=== PATIENT | female | born 1970 | race Caucasian/White ===

== ENCOUNTER → 2016-07-29 | Outpatient (CLI) | payer BC ==
--- NOTE | 2016-07-30 08:46 | MM ---
Reason for exam: screening (asymptomatic). Last mammogram was performed 6 months ago. History: Patient has history of other cancer at age 14. Chemotherapy, 1984. Radiation therapy, 1984. Took hormonal contraceptives for 10 years beginning at age 32. Physical Findings: A clinical breast exam by your physician is recommended on an annual basis and results should be correlated with mammographic findings. MG Screening Mammo w CAD Bilateral CC and MLO view(s) were taken. Prior study comparison: January 22, 2016, left breast MG work up mamm w CAD LT. January 12, 2016, bilateral MG screening mammo w CAD. Finding #1: There is a 7 mm equal density (isodense), oval mass in the central position of the right breast. Finding #2: There are typically benign calcifications in the left breast. ASSESSMENT: Incomplete: need additional imaging evaluation, BI-RAD 0 RECOMMENDATION: Special view mammogram of the right breast. If lesion persists on supplemental views, image directed ultrasound is recommended. [facility] will attempt to contact patient to return for supplemental views and ultrasound if indicated.
== END | disposition home or self-care (01) ==
LOC: RADMAMWWP 11:20
PROVIDERS: ATTEND Obstetrics & Gynecology
DX: Z12.31 Encounter for screening mammogram for malignant neoplasm of breast (principal)

== ENCOUNTER → 2016-08-07 | Outpatient (CLI) | payer BC ==
--- NOTE | 2016-08-08 06:47 | MM ---
Reason for exam: additional evaluation requested from abnormal screening. Last mammogram was performed less than 1 month ago. History: Patient has history of other cancer at age 14. Chemotherapy, 1984. Radiation therapy, 1984. Took hormonal contraceptives for 10 years beginning at age 32. Physical Findings: Nurse did not find any significant physical abnormalities on exam. MG Work Up Mamm w CAD RT LM and CC view(s) were taken of the right breast. Prior study comparison: July 29, 2016, bilateral MG screening mammo w CAD. January 22, 2016, left breast MG work up mamm w CAD LT. The breast tissue is heterogeneously dense. This may lower the sensitivity of mammography. Focal asymmetry in the right breast middle depth persists on spot CC view, not well seen on lateral view. These results were verbally communicated with the patient and result sheet given to the patient on 08/07/16. ASSESSMENT: Incomplete: need additional imaging evaluation, BI-RAD 0 RECOMMENDATION: Ultrasound of the right breast.
--- NOTE | 2016-08-08 06:51 | USB ---
Reason for exam: additional evaluation requested from abnormal screening. History: Patient has history of other cancer at age 14. Chemotherapy, 1984. Radiation therapy, 1984. Took hormonal contraceptives for 10 years beginning at age 32. US Breast Workup RT Right breast ultrasound including all four quadrants, the retroareolar region and axilla demonstrates a 4 x 3 x 4mm oval, mixed, hypoechoic, vascular lesion at 12 o'clock for which a FNA +/- biopsy is advised and a 9 x 4 x 5mm oval, cystic lesion at 12 o'clock, 6 cm from nipple. These results were verbally communicated with the patient and result sheet given to the patient on 08/07/16. ASSESSMENT: Suspicious, BI-RAD 4 RECOMMENDATION: Ultrasound core biopsy of the right breast. (+/- FNA) Called Dr. West with mammographic findings and has scheduled an appointment for the patient for 08/20/16 at 4:[address] Park. PRELIMINARY REPORT CALLED AND FAXED TO DR. PARK ON 08/08/16 AT 700/TP.
== END | disposition home or self-care (01) ==
LOC: RADMAMWWP 10:29
PROVIDERS: ATTEND Obstetrics & Gynecology
DX: R92.8 Other abnormal and inconclusive findings on diagnostic imaging of breast (principal)
CPT/HCPCS: 76641; G0206

== ENCOUNTER → 2016-09-05 | Day surgery (SDC) | payer BC ==
[~2016-09-05] MED LIST: BACITRACIN OINT 1 EACH PACKET TOPICAL ONE; LIDOCAINE 1% INJ 10MG/ML (20 ML MDV) ONE; LIDOCAINE 1%-EPI 1:100,000 20 ML VIAL ONE; SODIUM BICARB 4% 5 ML VIAL (0.48 MEQ/ML) ONE
--- NOTE | 2016-09-05 13:20 | USB ---
EXAMINATION TYPE: US biopsy breast VAD RT, MG diagnostic mammo RT wo CAD DATE OF EXAM: 09/05/2016 1:06 PM CLINICAL HISTORY: Abn Mammo R92.8. Abnormal ultrasound TECHNIQUE: Ultrasound guided core biopsy of right breast with clip placement and follow-up two-view mammogram. COMPARISON: Right breast diagnostic mammogram and ultrasound August 07, 2016 and older studies. FINDINGS: The procedure of ultrasound guided core biopsy was explained to the patient. Benefits, alternatives, and risks were discussed. An informed consent was then obtained. The patient was placed in supine positioning for imaging and for the procedure. Preprocedure imaging redemonstrates vague hypoechoic 4 mm area 12:00 position in the right breast. The overlying skin was prepped and draped in usual sterile fashion. Lidocaine buffered with bicarbonate was used as anesthetic into the skin. Lidocaine with epinephrine is used as anesthetic into the deeper tissue up to area of concern in the right breast. Under ultrasound guidance, a 12-gauge vacuum assisted biopsy gun device was used to obtain 4 core samples. Following this, a biopsy clip was left in lesion. The patient tolerated the procedure well without any immediate complication. The patient was kept in the radiology department for short stay after the procedure and then discharged home in stable condition. Postprocedure mammogram shows successful deployment of the clip near level of concern on mammogram. IMPRESSION: Successful, uncomplicated ultrasound guided core biopsy of area of concern in the right breast, full pathology results to follow. Low to intermediate index of suspicion noted at time of procedure. Pathology Results: Benign BREAST, RIGHT, CORE BIOPSY: BENIGN FIBROADIPOSE TISSUE WITH FAT NECROSIS AND FEATURES SUGGESTIVE OF CYST WALL WITH RUPTURE VERSUS CYSTIC CHANGE SECONDARY TO TRAUMA. Recommendation Follow up ultrasound of the right breast in 6 months. MTDD
== END | disposition home or self-care (01) ==
LOC: RADUSWWP 08-16 11:12
PROVIDERS: ATTEND Surgery
DX: R92.8 Other abnormal and inconclusive findings on diagnostic imaging of breast (principal)
CPT/HCPCS: 19083; G0206; A4648; J2001; 88305

== ENCOUNTER → 2016-11-20 | Outpatient (CLI) | payer BC ==
--- NOTE | 2016-11-20 10:35 | CT ---
EXAMINATION TYPE: CT chest wo con DATE OF EXAM: 11/20/2016 COMPARISON: Previous study dated 11/14/2015. HISTORY: Pulmonary nodules CT DLP: 217.00 mGycm Automated exposure control for dose reduction was used. FINDINGS: 5 mm nodule in the right middle lobe is again identified. There is calcified granuloma in t he left lower lobe. No additional parenchymal nodules are seen. There is no significant axillary, internal mammary, mediastinal or hilar adenopathy. There is no pleu ral or pericardial fluid. The heart is not enlarged. There is a 1.5 cm hypodensity in the dome of the liver. This is unchanged from previous. Visualized u pper abdominal structures are otherwise unremarkable. IMPRESSION: 1. STABLE RIGHT MIDDLE LOBE PULMONARY NODULE. 2. EVIDENCE OF OLD GRANULOMATOUS DISEASE. 3. STABLE HEPATIC LESION MAY REPRESENT A CYST. THIS COULD BE CONFIRMED WITH ULTRASOUND.
== END | disposition home or self-care (01) ==
LOC: RADCTMAIN 09:34
PROVIDERS: ATTEND Family Medicine
DX: R91.1 Solitary pulmonary nodule (principal)
CPT/HCPCS: 71250

== ENCOUNTER 2016-11-21 08:23 | Day surgery (SDC) | payer BC ==
[2016-11-18 14:44] VITALS: BMI 26.1
[~2016-11-21 08:23] MED LIST changes: -BACITRACIN OINT 1 EACH PACKET TOPICAL ONE; -LIDOCAINE 1% INJ 10MG/ML (20 ML MDV) ONE; -LIDOCAINE 1%-EPI 1:100,000 20 ML VIAL ONE; -SODIUM BICARB 4% 5 ML VIAL (0.48 MEQ/ML) ONE; +SODIUM CHLORIDE 0.9% 1,000 ML IV SCH
[2016-11-21 08:41] VITALS: BP 139/93; PULSE 88; RESP 16; TEMP 97.7
--- NOTE | 2016-11-21 15:12 | P.PCN ---
Preoperative Diagnosis: Twelve-lead ECG shows sinus rhythm early repolarization abnormality normal MD no delta waves normal QT interval Tilt table test procedure Baseline blood pressure 136/83 mmHg Baseline heart rate 87 beats a minute patient was tilted upright at an angle of 70 per protocol was no central change in her heart rate and blood pressure in the end of the procedure she was laid supine impression normal heart rate and blood pressure response to upright tilting Postoperative Diagnosis: Procedure(s) Performed: Implants: Disposition: same day Indications for Procedure: Operative Findings: Description of Procedure:
== END 2016-11-21 10:25 | disposition home or self-care (01) ==
LOC: CATHEP 08:23
PROVIDERS: ATTEND Internal Medicine Clinical Cardiac Electrophysiology
DX: R94.31 Abnormal electrocardiogram [ECG] [EKG] (principal)
CPT/HCPCS: 81025; 93005; 93660

== ENCOUNTER → 2017-09-24 | Outpatient (CLI) | payer BC ==
--- NOTE | 2017-09-26 11:24 | MM ---
Reason for exam: screening (asymptomatic). Last mammogram was performed 1 year and 1 month ago. History: Patient has history of other cancer at age 14. Benign US biopsy breast VAD RT of the right breast, September 05, 2016. Chemotherapy, 1984. Radiation therapy, 1984. Took hormonal contraceptives for 10 years beginning at age 32. Physical Findings: A clinical breast exam by your physician is recommended on an annual basis and results should be correlated with mammographic findings. MG Screening Mammo w CAD Bilateral CC and MLO view(s) were taken. Prior study comparison: September 05, 2016, right breast MG diagnostic mammo RT wo CAD. August 07, 2016, right breast MG work up mamm w CAD RT. The breast tissue is heterogeneously dense. This may lower the sensitivity of mammography. Previous mammotome biopsy in the right breast. No significant changes when compared with prior studies. ASSESSMENT: Negative, BI-RAD 1 RECOMMENDATION: Routine screening mammogram of both breasts in 1 year.
== END | disposition home or self-care (01) ==
LOC: RADMAMWWP 13:24
PROVIDERS: ATTEND Obstetrics & Gynecology
DX: Z12.31 Encounter for screening mammogram for malignant neoplasm of breast (principal)
CPT/HCPCS: 77067

== ENCOUNTER → 2019-03-25 | Outpatient (CLI) | payer BC ==
--- NOTE | 2019-03-25 11:59 | MM ---
Reason for exam: screening (asymptomatic). Last mammogram was performed 1 year and 6 months ago. History: Patient has history of other cancer at age 14. Benign US biopsy breast VAD RT of the right breast, September 05, 2016. Chemotherapy, 1984. Radiation therapy, 1984. Took hormonal contraceptives for 10 years beginning at age 32. Physical Findings: A clinical breast exam by your physician is recommended on an annual basis and results should be correlated with mammographic findings. MG Screening Mammo w CAD Bilateral CC and MLO view(s) were taken. Prior study comparison: September 24, 2017, bilateral MG screening mammo w CAD. September 05, 2016, right breast MG diagnostic mammo RT wo CAD. The breast tissue is heterogeneously dense. This may lower the sensitivity of mammography. Previous mammotome biopsy in the right breast. There is no discrete abnormality. ASSESSMENT: Benign, BI-RAD 2 RECOMMENDATION: Routine screening mammogram of both breasts in 1 year.
== END | disposition home or self-care (01) ==
LOC: RADMAMWWP 11:06
PROVIDERS: ATTEND Obstetrics & Gynecology
DX: Z12.31 Encounter for screening mammogram for malignant neoplasm of breast (principal)
CPT/HCPCS: 77067

== ENCOUNTER → 2020-04-18 | Outpatient (CLI) | payer BC ==
--- NOTE | 2020-04-19 12:23 | MM ---
Reason for exam: screening (asymptomatic). Last mammogram was performed 1 year and 1 month ago. History: Patient has history of other cancer at age 14. Benign US biopsy breast VAD RT of the right breast, September 05, 2016. Chemotherapy, 1984. Radiation therapy, 1984. Took hormonal contraceptives for 10 years beginning at age 32. Physical Findings: A clinical breast exam by your physician is recommended on an annual basis and results should be correlated with mammographic findings. MG Screening Mammo w CAD Bilateral CC and MLO view(s) were taken. Prior study comparison: March 25, 2019, bilateral MG screening mammo w CAD. September 24, 2017, bilateral MG screening mammo w CAD. The breast tissue is heterogeneously dense. This may lower the sensitivity of mammography. Previous mammotome biopsy in the right breast. There is no discrete abnormality. ASSESSMENT: Benign, BI-RAD 2 RECOMMENDATION: Routine screening mammogram of both breasts in 1 year.
== END | disposition home or self-care (01) ==
LOC: RADMAMWWP 13:11
PROVIDERS: ATTEND Family Medicine
DX: Z12.31 Encounter for screening mammogram for malignant neoplasm of breast (principal)
CPT/HCPCS: 77067

== ENCOUNTER → 2021-10-17 | Outpatient (CLI) | payer BC ==
--- NOTE | 2021-10-17 22:43 | BD ---
EXAMINATION TYPE: Axial Bone Density DATE OF EXAM: 10/17/2021 COMPARISON: NONE CLINICAL HISTORY: 51 years year old Female. ICD-10 CODE: Z13.820 SCREENING FOR OSTEOPOROSIS Height: 5'5 1/2 Weight: 148 FRAX RISK QUESTIONS: Secondary Osteoporosis: RISK FACTORS HISTORY OF: If Premenopausal, do you have irregular periods: Y MEDICATIONS: Thyroid Medications: Which medication: Levothyroxine How Lon Additional Medications: blood pressure, cholesterol, Plavix Additional History: graves disease, stroke 2014 EXAM MEASUREMENTS: Bone mineral densitometry was performed using the [employer] System. Bone mineral density as measured about the Lumbar spine is: ----- L1-L4(G/cm2): 1.268 T Score Values are as follows: ----- L1: 0.0 ----- L2: 0.5 ----- L3: 1.2 ----- L4: 0.9 ----- L1-L4: 0.7 Bone mineral density about the R hip (g/cm2): 1.075 Bone mineral density about the L hip (g/cm2): 1.010 T Score values are as follows: -----R Neck: 0.3 -----L Neck: -0.2 -----R Total: 0.8 -----L Total: 0.2 FRAX: The graph provided illustrates a 3.6% chance for a major osteoporotic fx and a 0.1% chance for the hips probability for fx in 10 years time. IMPRESSION: Normal (Values between +1 and -1 indicate normal bone mass). Consider repeating this study in 5 year s or sooner if there is some new clinical indication. NOTE: T-SCORE=SD OF THE YOUNG ADULT MEAN.
== END | disposition home or self-care (01) ==
LOC: RADBDWWP 12:43
PROVIDERS: ATTEND Family Medicine
DX: Z13.820 Encounter for screening for osteoporosis (principal)
CPT/HCPCS: 77080